=== PATIENT | female | born 1930 | race Caucasian/White ===

== ENCOUNTER 2018-11-04 07:56 | Emergency (ER) | payer OTHER, MEDICARE ==
[2018-11-04] MEDS ORDERED: FUROSEMIDE 20 MG/ 2ML VIAL ONE ×2 (08:52→09:38)
[2018-11-04 09:04] LABS: Protime INR 0.98
[2018-11-04 09:05] LABS: Absolute Lymphocytes (CBC) 1.4 K/uL (0.7-4.9); Absolute Monocytes 0.4 K/uL (0.1-1.3); Absolute Neutrophil 5.1 K/uL (1.8-8.0); Basophils % 0.7 % (0-1.3); Eosinophils % 0.9 % (0-4.4); Hematocrit 30.7 % (36.0-45.0); Lymphocytes % 19.6 % (15.3-44.8); MPV 8.9 fL (7.6-11.3); Monocytes % 5.7 % (3.3-12.3); RBC Red Blood Cell Count 3.66 M/uL (3.86-4.86)
[2018-11-04 09:18] LABS: Albumin 3.5 g/dL (3.4-5.0); Bilirubin Direct 0.2 mg/dL (0-0.2); Bilirubin Total 0.7 mg/dL (0.2-1.0); CKMB Creatine Kinase MB 1.6 ng/mL (0.3-3.6); Magnesium 2.3 mg/dL (1.8-2.4); Protein, Total 6.9 g/dL (6.4-8.2); Troponin (Emerg Dept Use Only) 0.08 ng/mL (0.0-0.045)
--- NOTE | 2018-11-04 09:32 | EDPHYS ---
Physician Documentation [facility] Name: Darline Ge Age: 88 yrs Sex: Female : 1930 Arrival Date: 11/04/2018 Time: 07:58 Bed 18 Private MD: ED Physician Elena Cuellar HPI: 11/04 08:22 This 88 yrs old Female presents to ER via EMS with complaints of Shortness Of ma2 Breath. 08:22 The patient has shortness of breath at rest. Onset: The symptoms/episode began/occurred ma2 gradually. Duration: The symptoms are continuous. Associated signs and symptoms: Pertinent negatives: productive cough, dizziness, hemoptysis. Severity of symptoms: At their worst the symptoms were moderate in the emergency department the symptoms are unchanged. Historical: - Allergies: 08:23 Codeine; em - Home Meds: 08:22 Lasix 40 mg oral tab [Active]; ramipril 10 mg Oral cap [Active]; carvedilol 12.5 mg em oral tab [Active]; donepezil 10 mg oral TbDL [Active]; rosuvastatin 10 mg oral tab [Active]; memantine 10 mg oral tab [Active]; - PMHx: 08:05 CHF; em - PSHx: 08:05 Cholecystectomy; Appendectomy; Tonsillectomy; Hysterectomy; em - Immunization history:: Adult Immunizations unknown. - Social history:: Smoking status: Patient/guardian denies using tobacco, Patient/guardian denies using alcohol, street drugs, The patient lives with family. - Ebola Screening: : Patient negative for fever greater than or equal to 101.5 degrees Fahrenheit, and additional compatible Ebola Virus Disease symptoms Patient denies exposure to infectious person Patient denies travel to an Ebola-affected area in the 21 days before illness onset No symptoms or risks identified at this time. - Family history:: not pertinent. ROS: 08:22 Constitutional: Negative for fever, chills, and weight loss. ma2 08:22 Respiratory: Positive for orthopnea, shortness of breath, Negative for sputum production, wheezing. 08:22 All other systems are negative. Exam: 08:22 Constitutional: This is a well developed, well nourished patient who is awake, alert, ma2 and in no acute distress. ENT: Nares patent. No nasal discharge, no septal abnormalities noted. Tympanic membranes are normal and external auditory canals are clear. Oropharynx with no redness, swelling, or masses, exudates, or evidence of obstruction, uvula midline. Mucous membranes moist. Neck: Trachea midline, no thyromegaly or masses palpated, and no cervical lymphadenopathy. Supple, full range of motion without nuchal rigidity, or vertebral point tenderness. No Meningismus. Chest/axilla: Normal chest wall appearance and motion. Nontender with no deformity. No lesions are appreciated. 08:22 Abdomen/GI: Soft, non-tender, with normal bowel sounds. No distension or tympany. No guarding or rebound. No evidence of tenderness throughout. Back: No spinal tenderness. No costovertebral tenderness. Full range of motion. Skin: Warm, dry with normal turgor. Normal color with no rashes, no lesions, and no evidence of cellulitis. MS/ Extremity: Pulses equal, no cyanosis. Neurovascular intact. Full, normal range of motion. Neuro: Awake and alert, GCS 15, oriented to person, place, time, and situation. Cranial nerves II-XII grossly intact. Motor strength 5/5 in all extremities. Sensory grossly intact. Cerebellar exam normal. Normal gait. 08:22 Cardiovascular: Rate: tachycardic, Heart sounds: normal, JVD: is noted on the right, to the angle of the jaw. 08:22 Respiratory: moderate respiratory distress is noted, Breath sounds: rales, that are moderate, are located in both bases. Vital Signs: 08:05 BP 143 / 87; Pulse 106; Resp 22; Temp 99.0(O); Pulse Ox 94% on 2 lpm NC; Weight 65.32 em kg; Height 5 ft. 3 in. (160.02 cm); Pain 0/10; 09:22 BP 120 / 88; Pulse 101; Resp 20; Pulse Ox 98% on 2 lpm NC; em 10:01 BP 111 / 75; Pulse 96; Resp 18; Pulse Ox 98% on 2 lpm NC; em 11:06 BP 121 / 89; Pulse 116; Resp 18; Pulse Ox 97% on 2 lpm NC; em 11:49 BP 115 / 74; Pulse 89; Resp 20; Pulse Ox 100% on 2 lpm NC; em 08:05 Body Mass Index 25.51 (65.32 kg, 160.02 cm) em MDM: 07:59 Patient medically screened. [facility] 08:22 Differential diagnosis: CHF exacerbation, Chronic Obstructive Pulmonary Disease nj2 pneumonia, reactive airway disease, Unstable Angina. 09:30 Data reviewed: vital signs, nurses notes. Counseling: I had a detailed discussion with [facility] the patient and/or guardian regarding: the historical points, exam findings, and any diagnostic results supporting the discharge/admit diagnosis, the presence of at least one elevated blood pressure reading (>120/80) during this emergency department visit, the need for outpatient follow up. ED course: no skin tendting, frx middle part of clavicle mild angulation . 10:03 ED course: patient has nstemi and chf exxacerbation and new o2 requirment sats 88 on [facility] ra, needs 2L O2 NC.. patient would like to be transferred to [facility] as her manager brand are there. i attempted calling dr. Dahl, no call back, i left a voice message and initiated transfer.. . 11/04 08:19 Order name: Blood Culture Adult (2) [facility] 11/04 08:19 Order name: BMP [facility] 11/04 08:19 Order name: CBC with Diff [facility] 11/04 08:19 Order name: Ckmb [facility] 11/04 08:19 Order name: CPK [facility] 11/04 08:19 Order name: D-Dimer [facility] 11/04 08:19 Order name: Hepatic Function; Complete Time: 09:18 [facility] 11/04 08:19 Order name: Lipase; Complete Time: 09:18 [facility] 11/04 08:19 Order name: Magnesium; Complete Time: 09:18 [facility] 11/04 08:19 Order name: NT PRO-BNP; Complete Time: 09:18 [facility] 11/04 08:19 Order name: PT-INR; Complete Time: 09:18 [facility] 11/04 08:19 Order name: Ptt, Activated; Complete Time: 09:18 [facility] 11/04 08:19 Order name: Troponin (emerg Dept Use Only); Complete Time: 09:18 [facility] 11/04 08:19 Order name: Blood Culture [facility] 11/04 08:19 Order name: XRAY CXR (1 view) [facility] 11/04 08:19 Order name: EKG; Complete Time: 08:20 [facility] 11/04 08:19 Order name: Cardiac monitoring; Complete Time: 08:49 ma2 11/04 08:19 Order name: EKG - Nurse/Tech; Complete Time: 08:49 ma2 11/04 08:19 Order name: IV Saline Lock; Complete Time: 08:49 ma2 11/04 08:19 Order name: Labs collected and sent; Complete Time: 08:49 ma2 11/04 08:19 Order name: Basic Metabolic Panel; Complete Time: 09:18 EDMS 11/04 08:19 Order name: CBC with Automated Diff; Complete Time: 09:28 EDMS 11/04 08:19 Order name: CKMB Creatine Kinase MB; Complete Time: 09:18 EDMS 11/04 08:19 Order name: Creatine Phosphokinase; Complete Time: 09:18 EDMS 11/04 08:19 Order name: D-Dimer; Complete Time: 09:18 EDMS 11/04 08:19 Order name: O2 Per Protocol; Complete Time: 08:49 ma2 11/04 08:19 Order name: O2 Sat Monitoring; Complete Time: 08:49 ma2 Administered Medications: 08:44 Drug: Lasix 20 mg Route: IVP; Site: right antecubital; iw 09:24 Follow up: Response: No adverse reaction em 09:34 Drug: Lasix 20 mg Route: IVP; Site: right antecubital; em 11:38 Follow up: Response: No adverse reaction em 10:36 Drug: Aspirin 325 mg Route: PO; em 11:37 Follow up: Response: No adverse reaction em 10:36 Drug: Lovenox 100 mg Route: Sub-Q; Site: right lower abdomen; em 11:38 Follow up: Response: No adverse reaction em 11:22 Drug: traMADol 50 mg Route: PO; em 12:30 Follow up: Response: No adverse reaction em Disposition: 11/04/18 10:05 Transfer ordered to [facility]. Diagnosis is Non-ST elevation (NSTEMI) myocardial infarction. - Reason for transfer: Higher level of care. - Accepting physician is Nondenominational . - Condition is Stable. - Problem is new. - Symptoms are unchanged. Signatures: Dispatcher [employer] EDMS Chadwick Ocampo, LOG CLERK LOG CLERK em María Feldman RN RN iw Elena Cuellar MD MD ma2 Corrections: (The following items were deleted from the chart) 08:22 08:05 Home Meds: Lasix Oral; em em 08:23 08:05 Allergies: No Known Allergies; em em 09:32 09:32 11/04/2018 09:32 Discharged to Home. Impression: Fracture of clavicle. Condition ma2 is Stable. Forms are Medication Reconciliation Form, Thank You Letter, Antibiotic Education, Prescription Opioid Use. Follow up: Private Physician; When: Tomorrow; Reason: Continuance of care. ma2 12:19 10:05 11/04/2018 10:05 Transfer ordered to [facility]. Diagnosis is em Non-ST elevation (NSTEMI) myocardial infarction. Reason for transfer: Higher level of care. Accepting physician is Nondenominational . Condition is Stable. Problem is new. Symptoms are unchanged. ma2
--- NOTE | 2018-11-04 09:32 | ER ---
Nurse's Notes [facility] Name: Darline Ge Age: 88 yrs Sex: Female : 1930 Arrival Date: 11/04/2018 Time: 07:58 Bed 18 Private MD: Diagnosis: Non-ST elevation (NSTEMI) myocardial infarction Presentation: 11/04 07:58 Presenting complaint: EMS states: reports SOB since last night 10 PM, denies fever, em cough, congestion , chest pain, on scene SPO2 89% RA, temp 100.3, denies pain, placed on 2 L via NC 93%. Transition of care: patient was not received from another setting of care. Onset of symptoms was November 03, 2018. Risk Assessment: Do you want to hurt yourself or someone else? Patient reports no desire to harm self or others. Initial Sepsis Screen: Does the patient meet any 2 criteria? No. Patient's initial sepsis screen is negative. Does the patient have a suspected source of infection? No. Patient's initial sepsis screen is negative. Care prior to arrival: Medication(s) given: Normal saline infusion, 300 mL. 07:58 Method Of Arrival: EMS: [facility] em 08:07 Acuity: RUBEN 3 iw Triage Assessment: 08:05 General: Appears in no apparent distress. comfortable, Behavior is calm, cooperative. em Pain: Denies pain. Respiratory: Reports shortness of breath at rest Airway is patent Respiratory effort is even, unlabored, Respiratory pattern is regular, symmetrical, Breath sounds are diminished Onset: The symptoms/episode began/occurred yesterday, the patient has mild shortness of breath. Historical: - Allergies: 08:23 Codeine; em - Home Meds: 08:22 Lasix 40 mg oral tab [Active]; ramipril 10 mg Oral cap [Active]; carvedilol 12.5 mg em oral tab [Active]; donepezil 10 mg oral TbDL [Active]; rosuvastatin 10 mg oral tab [Active]; memantine 10 mg oral tab [Active]; - PMHx: 08:05 CHF; em - PSHx: 08:05 Cholecystectomy; Appendectomy; Tonsillectomy; Hysterectomy; em - Immunization history:: Adult Immunizations unknown. - Social history:: Smoking status: Patient/guardian denies using tobacco, Patient/guardian denies using alcohol, street drugs, The patient lives with family. - Ebola Screening: : Patient negative for fever greater than or equal to 101.5 degrees Fahrenheit, and additional compatible Ebola Virus Disease symptoms Patient denies exposure to infectious person Patient denies travel to an Ebola-affected area in the 21 days before illness onset No symptoms or risks identified at this time. - Family history:: not pertinent. Screenin:07 Abuse screen: Denies threats or abuse. Nutritional screening: No deficits noted. em Tuberculosis screening: No symptoms or risk factors identified. Fall Risk None identified. Assessment: 08:05 General: Appears in no apparent distress. comfortable, Behavior is calm, cooperative, em Denies fever. Pain: Denies pain. Neuro: Level of Consciousness is awake, alert, obeys commands, Oriented to person, place, time, situation. Cardiovascular: Denies chest pain, Capillary refill < 3 seconds Patient's skin is warm and dry. Rhythm is sinus tachycardia. Respiratory: Reports shortness of breath Airway is patent Respiratory effort is even, unlabored, Respiratory pattern is regular, symmetrical, Breath sounds are clear Denies cough. Derm: Skin is intact, is fragile, Skin is pink, warm \T\ dry. Musculoskeletal: Capillary refill < 3 seconds, Range of motion: intact in all extremities. 08:40 Reassessment: Patient appears in no apparent distress at this time. I agree with above iw assessment by Chadwick Ocampo LVN. 09:00 Reassessment: No changes from previously documented assessment. Patient and/or family em updated on plan of care and expected duration. Pain level reassessed. Patient is alert, oriented x 3, equal unlabored respirations, skin warm/dry/pink. used bedside commode, family at bedside Patient denies pain at this time. 09:40 Reassessment: Patient appears in no apparent distress at this time. Patient and/or em family updated on plan of care and expected duration. Pain level reassessed. Patient is alert, oriented x 3, equal unlabored respirations, skin warm/dry/pink. Dr. Cuellar at bedside discussing POC. 11:07 Reassessment: report given to ASIYA Trevizo at [facility], [place] transportation. em 11:20 Reassessment: reports she takes tramadol for pain, reports lower back pain, provider em notified, new medication orders received. 12:05 Reassessment: Patient appears in no apparent distress at this time. Patient and/or em family updated on plan of care and expected duration. Pain level reassessed. Patient is alert, oriented x 3, equal unlabored respirations, skin warm/dry/pink. report given to [facility]. Vital Signs: 08:05 BP 143 / 87; Pulse 106; Resp 22; Temp 99.0(O); Pulse Ox 94% on 2 lpm NC; Weight 65.32 em kg; Height 5 ft. 3 in. (160.02 cm); Pain 0/10; 09:22 BP 120 / 88; Pulse 101; Resp 20; Pulse Ox 98% on 2 lpm NC; em 10:01 BP 111 / 75; Pulse 96; Resp 18; Pulse Ox 98% on 2 lpm NC; em 11:06 BP 121 / 89; Pulse 116; Resp 18; Pulse Ox 97% on 2 lpm NC; em 11:49 BP 115 / 74; Pulse 89; Resp 20; Pulse Ox 100% on 2 lpm NC; em 08:05 Body Mass Index 25.51 (65.32 kg, 160.02 cm) em ED Course: 07:58 Patient arrived in ED. hj 07:58 Chadwick Ocampo LVN is Primary Nurse. em 07:59 Elena Cuellar MD is Attending Physician. ma2 08:05 Arm band placed on. em 08:07 Triage completed. iw 08:07 Patient has correct armband on for positive identification. Bed in low position. Call em light in reach. Side rails up X2. Adult w/ patient. pvc monitor on. Pulse ox on. NIBP on. 08:07 Maintain EMS IV. Dressing intact. Good blood return noted. Site clean \T\ dry. Gauge \T\ em site: 18 RAC. 09:17 XRAY CXR (1 view) In Process Unspecified. EDMS 09:45 initiated a transfer with Ronit at the [facility]. eb 10:07 administrative approval given pending a bed by Ronit Duran at the [facility]/ Dr. Schmitz accepted the patient in transfer at 1001/ faxed over a face sheet to [phone]/ Ronit will call back once a room assignment has been given to her. 10:50 patient is going to the [facility] 7[facility]/ report to be called to the transfer center at [phone]. 12:16 No provider procedures requiring assistance completed. Patient transferred, IV remains em in place. Administered Medications: 08:44 Drug: Lasix 20 mg Route: IVP; Site: right antecubital; iw 09:24 Follow up: Response: No adverse reaction em 09:34 Drug: Lasix 20 mg Route: IVP; Site: right antecubital; em 11:38 Follow up: Response: No adverse reaction em 10:36 Drug: Aspirin 325 mg Route: PO; em 11:37 Follow up: Response: No adverse reaction em 10:36 Drug: Lovenox 100 mg Route: Sub-Q; Site: right lower abdomen; em 11:38 Follow up: Response: No adverse reaction em 11:22 Drug: traMADol 50 mg Route: PO; em 12:30 Follow up: Response: No adverse reaction em Output: 09:22 Urine: 300ml (Voided); Total: 300ml. em 12:05 Urine: 600ml (Voided); Total: 900ml. em Outcome: 09:32 Discharge ordered by MD. dexter 10:05 ER care complete, transfer ordered by MD. dexter 12:16 Transferred by ground EMS to [facility], Transfer form completed. X-rays em sent w/ patient. 12:16 Condition: good 12:16 Instructed on the need for transfer, Demonstrated understanding of instructions. 12:19 Patient left the ED. em Signatures: Dispatcher [employer] EDMS Chadwick Ocampo, INVOICE CONTROL CLERK INVOICE CONTROL CLERK em María Feldman RN RN Serge Nolasco RN RN Elena Cuellar MD MD ma2 Botello, Elizabeth Corrections: (The following items were deleted from the chart) 08:22 08:05 Home Meds: Lasix Oral; em em 08:23 08:05 Allergies: No Known Allergies; em em 11:12 11:06 BP 121 / 89; Pulse 12bpm; Resp 18bpm; Pulse Ox 97% 2 lpm Nasal Cannula; em em
--- NOTE | 2018-11-04 09:33 | RAD REPORT ---
EXAM DESCRIPTION: RAD - Chest Single View - 11/04/2018 9:17 am CLINICAL HISTORY: Dyspnea COMPARISON: None. TECHNIQUE: AP portable chest image was obtained [id number] hours . FINDINGS: No focal consolidation or mass. Interstitial markings are prominent with baseline for the patient unknown. Cardiac silhouette is enlarged. Upper lobe vasculature is mildly prominent. No measu rable pleural effusion and no pneumothorax. No acute bony abnormality seen. No acute aortic findings suspected. IMPRESSION: Baseline chest examination showing mild cardiomegaly and prominent interstitial pattern. Failure/ volume overload would be favored.
[2018-11-04] MEDS ORDERED: ENOXAPARIN 100 MG/ML SYR SQ ONE (10:40)
[2018-11-04] MEDS ORDERED: ASPIRIN 81 MG CHEWABLE TABLET ONE (10:40)
--- NOTE | 2018-11-04 11:21 | EKG ---
Test Date: 2018-11-04 Test Time: 08:13:09 Cigar Packer: RAMIREZ MEASUREMENT RESULTS: Intervals: Rate: 104 UT: 130 QRSD: 138 QT: 388 QTc: 510 [place]: P: 74 UT: 130 QRS: -33 T: 95 INTERPRETIVE STATEMENTS: Sinus tachycardia Left atrial enlargement Left axis deviation Left bundle branch block Abnormal ECG No previous ECG available for comparison Electronically Signed On 11-04-18 11:20:34 CDT by Sandip Ferguson
[2018-11-04] MEDS ORDERED: TRAMADOL HCL 50 MG TAB ONE (11:31)
== END 2018-11-04 12:19 | disposition short-term general hospital (02) ==
LOC: ER 07:56
DX: I21.4 Non-ST elevation (NSTEMI) myocardial infarction (principal); Z88.6 Allergy status to analgesic agent
CPT/HCPCS: 93005; 87040 ×2; 85025; 80048; 36415; 83735; 82550; 85610; 85379; 80076; 85730; 84484; 82553; 83690; 83880; 71045; 96372; 96374; 99285; J1940 ×2; J1650